=== PATIENT | female | born 1965 | race African-American/Black ===

== ENCOUNTER 2017-01-26 08:39 | Emergency (ER) | payer OTHER ==
[2017-01-26 09:16] LABS: BASOPHIL 0.2 % (0-2); EOSINOPHIL 1.1 % (0-5); HCT 34.8 % (37.0-47.0); MCH 22.8 pg (25.0-31.0); MCHC 31.6 g/dL (32.0-36.0); MONOCYTE 6.8 % (0-12); MPV 10.4 fL (6.0-9.5); NEUTROPHIL 58.9 % (41-80); PLT 274 K/uL (150-400); RBC 4.83 M/uL (4.20-5.40); WBC 6.2 K/uL (4.0-10.5)
[2017-01-26 09:24] LABS: INR 0.93 (0.9-1.2); PROTHROMBIN TIME 12.1 SECONDS (11.7-14.0)
[2017-01-26 09:52] LABS: ALBUMIN 3.9 g/dL (3.5-5.0); BILIRUBIN - TOTAL 0.5 mg/dL (0.1-1.0); CREATININE 0.8 mg/dL (0.5-1.0); POTASSIUM 4.4 mmol/L (3.5-5.1); TOTAL PROTEIN 6.9 g/dL (6.4-8.3)
[2017-01-26 09:53] LABS: CKMB 1.87 ng/mL (0.97-4.94); MYOGLOBIN 41 ng/mL (26-65); TROPONIN T < 0.010 ng/mL
[2017-01-26 10:13] LABS: BILIRUBIN NEGATIVE (NEGATIVE); BLOOD NEGATIVE Ery/uL (NEGATIVE); CLARITY CLEAR (CLEAR); COLOR YELLOW (YELLOW); GLUCOSE (U) NORMAL (NORMAL); KETONE (U) NEGATIVE (NEGATIVE); LEUKOCYTES NEGATIVE Leu/uL (NEGATIVE); NITRITE NEGATIVE (NEGATIVE); PROTEIN NEGATIVE (NEGATIVE); UROBILINOGEN 0.2 mg/dL (0.2-1.0); pH 6.5 (5.0-9.0)
== END 2017-01-26 12:34 | disposition other institution (70) ==
LOC: FER 08:39
PROVIDERS: Emergency Medicine
DX: I63.9 Cerebral infarction, unspecified (principal); G81.90 Hemiplegia, unspecified affecting unspecified side; R20.8 Other disturbances of skin sensation; J45.909 Unspecified asthma, uncomplicated; E05.00 Thyrotoxicosis with diffuse goiter without thyrotoxic crisis or storm; Z82.3 Family history of stroke; Z90.09 Acquired absence of other part of head and neck; Z79.899 Other long term (current) drug therapy
CPT/HCPCS: 36415; 70450; 70551; 71010; 80053; 80061; 81003; 82550; 82553; 83874; 84443; 84484; 85025; 85610; 85730; 93005